=== PATIENT | female | born 1985 | race Caucasian/White ===

== ENCOUNTER 2022-03-25 12:19 | Emergency (ER) | payer BC ==
[~2022-03-25] VITALS: Ht 165.1 cm; Wt 63.6 kg
[2022-03-25 12:30] VITALS: BP 126/78
[2022-03-25 13:29] LABS: ALANINE AMINOTRANSFERASE 15 U/L (12-78); ALBUMIN 4.2 G/DL (3.4-5.0); ALBUMIN/GLOBULIN RATIO 1.2 (1.1-1.5); ALKALINE PHOSPHATASE 49 IU/L (46-116); ANION GAP 9 (8-16); ASPARTATE AMINO TRANSFERASE 12 U/L (10-37); BILIRUBIN,TOTAL 0.7 MG/DL (0.1-1.0); BLOOD UREA NITROGEN 10 MG/DL (7-18); BUN/CREATININE RATIO 11.6 (6.6-38.0); CALCIUM 9.5 MG/DL (8.5-10.1); CHLORIDE 105 MMOL/L (99-107); CREATININE 0.86 MG/DL (0.40-0.90); GLUCOSE 101 MG/DL (70-104); POTASSIUM 3.7 MMOL/L (3.5-5.1); SODIUM 143 MMOL/L (135-145); TOTAL CARBON DIOXIDE 29.5 MMOL/L (24-32); TOTAL PROTEIN 7.8 G/DL (6.4-8.2); eGFR 74 ML/MIN
[2022-03-25 13:34] LABS: BASOPHILS % (AUTO) 0.3 % (0-1); EOSINOPHILS # (AUTO) 0.2 X10'3 (0-0.9); EOSINOPHILS % (AUTO) 4.2 % (0-6); HEMATOCRIT 43.4 % (35.0-45.0); HEMOGLOBIN 14.3 g/dl (12.0-16.0); LYMPHOCYTES # (AUTO) 1.4 X10'3 (1.1-4.8); LYMPHOCYTES % (AUTO) 31.4 % (21-51); MEAN CORPUSCULAR HEMOGLOBIN 29.5 PG (27.0-31.0); MEAN CORPUSCULAR VOLUME 89.4 FL (78-98); MEAN PLATELET VOLUME 7.8 FL (7.4-10.4); MONOCYTES # (AUTO) 0.4 X10'3 (0-0.9); MONOCYTES % (AUTO) 8.9 % (2-12); NEUTROPHILS # (AUTO) 2.4 X10'3 (1.8-7.7); NEUTROPHILS % (AUTO) 55.2 % (42-75); PLATELET COUNT 240 X10'3 (140-440); RED BLOOD COUNT 4.85 X10'6 (4.20-5.60); WHITE BLOOD COUNT 4.4 X10'3 (4.5-11.0)
[2022-03-25] MEDS ORDERED: aspirin 325mg tablet PO ONE (15:20)
== END 2022-03-25 16:05 | disposition home or self-care (01) ==
LOC: ER 12:19
DX: R07.9 Chest pain, unspecified (principal); M79.602 Pain in left arm; R00.0 Tachycardia, unspecified; M25.522 Pain in left elbow
CPT/HCPCS: 36415; 71045; 80053; 83880; 84484; 85025; 93005; 99285